=== PATIENT | male | born 1960 | race Caucasian/White ===

== ENCOUNTER → 2024-02-19 06:28 | Day surgery (SDC) | payer OTHER, SELFPAY | LOC: GI 06:28 | PROVIDERS: ATTENDING PHYSICIAN Internal Medicine | DX: Z12.11 Encounter for screening for malignant neoplasm of colon (principal); K64.8 Other hemorrhoids; Z80.0 Family history of malignant neoplasm of digestive organs | CPT/HCPCS: G0105 ==

== ENCOUNTER → 2024-10-02 07:05 | Outpatient (REF) | payer OTHER, SELFPAY | LOC: RCS 07:05 | PROVIDERS: ATTENDING PHYSICIAN Internal Medicine | DX: R93.1 Abnormal findings on diagnostic imaging of heart and coronary circulation (principal); R06.09 Other forms of dyspnea | CPT/HCPCS: 78452; 93005; 93017; A9500 ==